=== PATIENT | male | born 1975 | race Caucasian/White ===

== ENCOUNTER 2016-11-13 21:41 | Emergency (ER) | payer BC, OTHER ==
[2016-11-13 21:49] VITALS: RESP 16; TEMP 97.6
--- NOTE | 2016-11-13 21:50 | ED ---
General Adult HPI - General Stated complaint: Overdose Time Seen by Provider: 11/13/16 21:46 Source: patient, police, EMS Mode of arrival: EMS Limitations: no limitations - History of Present Illness Initial comments: Patient is a 41-year-old male presenting to emergency department by EMS, priority 1.. EMS states patient was unresponsive and cyanotic breathing approximately 3-4 times per minute. No loss of heartbeat. Patient was given 6 mg of morphine with gradual return of responsiveness. Patient did have an oral airway in place however was not intubated. Patient originally states he did not take anything and that he is fine. Patient does later admit that he snorted heroin and took some Xanax and some morphine. Patient denies suicide attempt. Patient denies taking oxycodone. Reportedly friend present had concern for patient taking oxycodone and morphine. Patient reportedly has a history of heroin abuse. - Related Data Home Medications Medication Instructions Recorded Confirmed No Known Home Medications [No 11/09/15 11/13/16 Known Home Medications] Allergies Allergy/AdvReac Type Severity Reaction Status Date / Time No Known Allergies Allergy Verified 11/13/16 22:18 Review of Systems ROS Statement: Those systems with pertinent positive or pertinent negative responses have been documented in the HPI. ROS Other: All systems not noted in ROS Statement are negative. Constitutional: Denies: fever Eyes: Denies: eye pain ENT: Denies: ear pain Respiratory: Denies: cough, dyspnea Cardiovascular: Denies: chest pain Endocrine: Denies: fatigue Gastrointestinal: Denies: abdominal pain Genitourinary: Denies: dysuria Musculoskeletal: Denies: back pain Skin: Denies: rash Neurological: Denies: weakness Past Medical History Past Medical History: Deep Vein Thrombosis (DVT) Additional Past Medical History / Comment(s): substance abuse, chronic back pain History of Any Multi-Drug Resistant Organisms: None Reported Past Surgical History: Orthopedic Surgery Additional Past Surgical History / Comment(s): Left ACL repair Past Psychological History: No Psychological Hx Reported, Depression Smoking Status: Light tobacco smoker Past Alcohol Use History: Occasional Additional Past Alcohol Use History / Comment(s): History of alcohol abuse and has been sober for 10 years. Patient chews tobacco for the past 25 years. Past Drug Use History: None Reported - Past Family History Father Family Medical History: No Reported History Additional Family Medical History / Comment(s): Father is 62 years old with history of back surgeries and chronic neuropathy. Mother Family Medical History: No Reported History, Cancer, Diabetes Mellitus, Osteoarthritis (OA) Additional Family Medical History / Comment(s): Mother is 60 years of age and has breast cancer currently in remission, diabetes, osteoarthritis. Sister(s) Family Medical History: No Reported History Additional Family Medical History / Comment(s): Patient has 2 sisters that are healthy. He does not have any brothers. He has one 6-year-old daughter. General Exam Limitations: no limitations General appearance: alert, in no apparent distress Head exam: Present: atraumatic Eye exam: Present: normal appearance, PERRL, EOMI ENT exam: Present: normal oropharynx Neck exam: Present: normal inspection. Absent: tenderness Respiratory exam: Present: normal lung sounds bilaterally Cardiovascular Exam: Present: regular rate, normal rhythm GI/Abdominal exam: Present: soft. Absent: tenderness Extremities exam: Present: normal inspection Neurological exam: Present: alert, CN II-XII intact. Absent: motor sensory deficit Expanded Patient oriented to: Present: person, place, time (Oriented to year however unclear on month) Speech: Present: fluid speech Cranial nerves: EOM's Intact: Normal Motor strength exam: RUE: 5, LUE: 5, RLE: 5, LLE: 5 Psychiatric exam: Present: normal affect, normal mood Skin exam: Present: normal color Course Vital Signs 11/13/16 11/13/16 21:43 23:08 Temperature 97.6 F Pulse Rate 86 87 Respiratory 16 16 Rate Blood Pressure 142/86 132/77 O2 Sat by Pulse 98 96 Oximetry EKG Findings - EKG Comments: EKG Findings:: Normal sinus rhythm 90. MT 160. QRS 106. QT 396. QTc 44. Normal axis. Normal QRS. Normal ST-T. Medical Decision Making - Medical Decision Making Patient requesting discharge. Patient is alert and appropriate. Patient oriented 3. Patient still denies suicidal attempt and states he was just partying too much. - Lab Data Result diagrams: 11/13/16 21:45 11/13/16 21:45 Lab Results 11/13/16 11/13/16 11/13/16 Range/Units 21:45 21:45 23:35 WBC 5.3 (3.8-10.6) k/uL RBC 3.99 L (4.30-5.90) m/uL Hgb 12.7 L (13.0-17.5) gm/dL Hct 38.2 L (39.0-53.0) % MCV 95.6 (80.0-100.0) fL MCH 31.7 (25.0-35.0) pg MCHC 33.2 (31.0-37.0) g/dL RDW 13.0 (11.5-15.5) % Plt Count 225 (150-450) k/uL Neutrophils % 69 % Lymphocytes % 22 % Monocytes % 3 % Eosinophils % 5 % Basophils % 0 % Neutrophils # 3.6 (1.3-7.7) k/uL Lymphocytes # 1.2 (1.0-4.8) k/uL Monocytes # 0.1 (0-1.0) k/uL Eosinophils # 0.3 (0-0.7) k/uL Basophils # 0.0 (0-0.2) k/uL Sodium 141 (137-145) mmol/L Potassium 4.6 (3.5-5.1) mmol/L Chloride 103 (98-107) mmol/L Carbon Dioxide 28 (22-30) mmol/L Anion Gap 10 mmol/L BUN 15 (9-20) mg/dL Creatinine 0.90 (0.66-1.25) mg/dL Est GFR (MDRD) Af Amer >60 (>60 ml/min/1.73 sqM) Est GFR (MDRD) Non-Af >60 (>60 ml/min/1.73 sqM) Glucose 307 H (74-99) mg/dL POC Glucose (mg/dL) 113 H (75-99) mg/dL POC Glu [employer] Professor ID Kraig Berry Calcium 8.3 L (8.4-10.2) mg/dL Total Bilirubin 0.4 (0.2-1.3) mg/dL AST 60 H (17-59) U/L ALT 61 (21-72) U/L Alkaline Phosphatase 49 (38-126) U/L Total Protein 5.8 L (6.3-8.2) g/dL Albumin 3.3 L (3.5-5.0) g/dL Salicylates <1.0 mg/dL Acetaminophen <10.0 ug/mL Serum Alcohol <10 mg/dL - Radiology Data Radiology results: image reviewed (Chest x-ray shows no acute process) Disposition Clinical Impression: Drug overdose Disposition: HOME SELF-CARE Condition: Stable Instructions: Adult Overdose (ED), Narcotic Abuse (ED) Additional Instructions: Discontinue drug use. Return for worsening symptoms or other concerns. Please follow-up with rehab and primary care physician. Referrals: None,Stated [Primary Care Provider] - 1-2 days Ludivina Isaac MD [STAFF PHYSICIAN] - 1-2 days Time of Disposition: 00:11
[2016-11-13 22:06] LABS: Basophils % (A) 0 %; CH 31.1; CHCM 32.7; Eosinophils # (A) 0.3 k/uL (0-0.7); Eosinophils % (A) 5 %; HCT 38.2 % (39.0-53.0); HDW 2.63; HGB 12.7 gm/dL (13.0-17.5); Luc # (Auto) 0.08; Luc % (Auto) 2; Lymphocytes # (A) 1.2 k/uL (1.0-4.8); Lymphocytes % (A) 22 %; MCH 31.7 pg (25.0-35.0); MCHC 33.2 g/dL (31.0-37.0); MCV 95.6 fL (80.0-100.0); Mean Platelet Volume 6.9; Monocytes # (A) 0.1 k/uL (0-1.0); Monocytes % (A) 3 %; Neutrophils # (A) 3.6 k/uL (1.3-7.7); Neutrophils % (A) 69 %; RBC 3.99 m/uL (4.30-5.90); WBC 5.3 k/uL (3.8-10.6); WBC (Perox) 5.17
--- NOTE | 2016-11-13 22:07 | XR ---
EXAMINATION TYPE: XR chest 1V portable DATE OF EXAM: 11/13/2016 10:01 PM COMPARISON: 04/08/2016 HISTORY: Chest pain TECHNIQUE: Single frontal view of the chest is obtained. FINDINGS: There is no heart failure nor pneumonic infiltrate. There are no hilar masses. Costophreni c angles are clear. There are chest leads. IMPRESSION: No active cardiopulmonary disease. Inspiration is improved compared to old exam.
[2016-11-13 22:17] LABS: ALT 61 U/L (21-72); AST 60 U/L (17-59); Acetaminophen <10.0 ug/mL; Alcohol <10 mg/dL; Alkaline Phosphatase 49 U/L (38-126); Anion Gap 10 mmol/L; Blood Urea Nitrogen 15 mg/dL (9-20); Calcium 8.3 mg/dL (8.4-10.2); Carbon Dioxide 28 mmol/L (22-30); Chloride 103 mmol/L (98-107); Glucose 307 mg/dL (74-99); Non-African American GFR(MDRD) >60 (>60 ml/min/1.73 sqM); Potassium 4.6 mmol/L (3.5-5.1); Salicylate <1.0 mg/dL; Sodium 141 mmol/L (137-145); Total Bilirubin 0.4 mg/dL (0.2-1.3); Total Protein 5.8 g/dL (6.3-8.2)
[2016-11-13 23:38] LABS: Glucose,Whole Blood 113 mg/dL (75-99)
[2016-11-14 00:30] VITALS: BP 128/76; PULSE 82
== END 2016-11-14 00:27 | disposition home or self-care (01) ==
LOC: EC 21:41
DX: T40.1X1A Poisoning by heroin, accidental (unintentional), initial encounter (principal); T42.4X1A Poisoning by benzodiazepines, accidental (unintentional), initial encounter; T40.2X1A Poisoning by other opioids, accidental (unintentional), initial encounter; F17.200 Nicotine dependence, unspecified, uncomplicated
CPT/HCPCS: 36415; 71010; 80053; 80320; 83520; 85025; 93005; 99285

== ENCOUNTER 2017-12-04 22:09 | Emergency (ER) | payer OTHER, BC ==
[2017-12-04 22:27] VITALS: BP 151/94; PULSE 98; RESP 18; TEMP 98.2
[2017-12-04] MEDS ORDERED: SODIUM CHLORIDE 0.9% 500 ML IV STA (22:42)
[2017-12-04] MEDS ORDERED: SODIUM CHLORIDE 0.9% 1,000 ML IV STA (22:42)
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
[2017-12-04 22:56] LABS: Basophils % (A) 0 %; Eosinophils # (A) 0.4 k/uL (0-0.7); Eosinophils % (A) 4 %; HCT 43.6 % (39.0-53.0); HGB 14.6 gm/dL (13.0-17.5); Lymphocytes # (A) 1.8 k/uL (1.0-4.8); Lymphocytes % (A) 17 %; MCH 31.1 pg (25.0-35.0); MCHC 33.5 g/dL (31.0-37.0); MCV 92.9 fL (80.0-100.0); Mean Platelet Volume 6.8; Monocytes # (A) 0.5 k/uL (0-1.0); Monocytes % (A) 5 %; Neutrophils # (A) 7.6 k/uL (1.3-7.7); Neutrophils % (A) 72 %; Platelet Count 295 k/uL (150-450); RBC 4.69 m/uL (4.30-5.90); RDW 13.4 % (11.5-15.5); WBC 10.6 k/uL (3.8-10.6)
[2017-12-04 23:12] LABS: ALT 36 U/L (21-72); AST 21 U/L (17-59); Albumin 4.2 g/dL (3.5-5.0); Alcohol <10 mg/dL; Alkaline Phosphatase 63 U/L (38-126); Amylase 38 U/L (30-110); Anion Gap 13 mmol/L; Blood Urea Nitrogen 15 mg/dL (9-20); Calcium 9.2 mg/dL (8.4-10.2); Carbon Dioxide 27 mmol/L (22-30); Chloride 105 mmol/L (98-107); Glucose 100 mg/dL (74-99); Lipase 25 U/L (23-300); Sodium 145 mmol/L (137-145); Total Bilirubin 0.6 mg/dL (0.2-1.3); Total Protein 6.7 g/dL (6.3-8.2)
--- NOTE | 2017-12-04 23:16 | XR ---
EXAMINATION TYPE: XR chest 1V portable DATE OF EXAM: 12/04/2017 COMPARISON: 11/13/2016 HISTORY: Chest pain TECHNIQUE: Single frontal view of the chest is obtained. FINDINGS: Heart and mediastinum are normal. Lungs are clear. Diaphragm is normal. Bony thorax is int act. There are chest leads. IMPRESSION: Normal chest. No change.
[2017-12-04 23:17] LABS: Creatine Kinase 139 U/L (55-170)
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
[2017-12-04 23:22] LABS: Prothrombin Time 10.3 sec (9.0-12.0)
[2017-12-04 23:24] LABS: Partial Thromboplastin Time 21.8 sec (22.0-30.0)
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
[2017-12-04 23:29] LABS: Creatine Kinase MB 1.7 ng/mL (0.0-2.4); Troponin I <0.012 ng/mL (0.000-0.034)
== END 2017-12-05 00:13 | disposition home or self-care (01) ==
LOC: EC 22:09
DX: S22.060A Wedge compression fracture of T7-T8 vertebra, initial encounter for closed fracture (principal); S20.212A Contusion of left front wall of thorax, initial encounter; S60.222A Contusion of left hand, initial encounter; I10 Essential (primary) hypertension; F17.200 Nicotine dependence, unspecified, uncomplicated; V23.4XXA Motorcycle driver injured in collision with car, pick-up truck or van in traffic accident, initial encounter; Y93.55 Activity, bike riding; Y92.410 Unspecified street and highway as the place of occurrence of the external cause
CPT/HCPCS: 36415; 93005; 86900; 86901; 80053; 82150; 82550; 82553; 83605; 83690; 84484; 85025; 85610; 85730; 86850; 80320; 72170; 71045; 71260; 74177; 99285; 96360; Q9967